=== PATIENT | male | born 1980 | race Caucasian/White ===

== ENCOUNTER 2022-04-23 22:24 | Emergency (ER) | payer MEDICARE, MEDICAID, SELFPAY ==
--- NOTE | ~2022-04-23 | XR_ITS ---
EXAMINATION: XR chest 2V DATE: 04/23/2022 22:57 INDICATION: Shortness of breath. TECHNIQUE: Frontal and lateral views of the chest were obtained. COMPARISON: None. FINDINGS: There is mild atelectasis in the lower lung zones. No pleural effusion or pneumothorax. The heart size is normal. IMPRESSION: 1. Mild atelectasis in the lower lung zones. Reviewed, dictated and finalized at location [facility]. [facility]
[2022-04-23 22:27] VITALS: BP 169/97; PULSE 86; RESP 18; TEMP 36.7; O2SAT 100
[2022-04-23 23:06] VITALS: O2SAT 100
--- NOTE | 2022-04-23 23:16 | ED.GENADULT ---
HPI - General Adult General Chief complaint: Recheck/Abnormal Lab/Rx Stated complaint: low 02 Time Seen by Provider: 04/23/22 22:37 History of Present Illness HPI narrative: 42-year-old male with intellectual disability at baseline presented to the emergency department for evaluation from a half-way for reported heavy breathing. Caregiver states that she noted he was breathing heavily and checked his pulse ox and she stated it was in the low 90s and did dip to 83%. Caregiver called EMS for transport to the emergency department. EMS stated that on arrival his pulse ox was in the high 90s. Upon arrival to emergency department patient's pulse ox is 100%. Patient denies any complaints at this time and is in no distress. Related Data Home Medications Medication Instructions Recorded Confirmed diphenhydramine HCl 25 mg capsule 25 mg PO Q6H PRN 01/28/20 10/20/21 (Allergy (diphenhydramine)) hydrocortisone 1 % topical cream 1 applic topical TID PRN 01/28/20 10/20/21 (Anti-Itch (hydrocortisone)) multivitamin,qu-xowh-[id number] 1 tablet PO DAILY 01/28/20 10/20/21 (Complete Multivitamin tablet) hkutzpbwwwzal-JA-dwcjfnjjvej 5 10 ml PO Q4H PRN 01/28/20 10/20/21 mg-10 mg-100 mg/5 mL oral liquid (Robafen CF (phenylephrine)) Allergies Allergy/AdvReac Type Severity Reaction Status Date / Time No Known Drug Allergies Allergy Mild Unknown Verified 04/23/22 22:30 Review of Systems Review of Systems: Patient denies any complaints at this time. Patient denies any chest pain or shortness of breath. Review of systems is limited due to patient's baseline mental status PMFSH Social History Social History (System 08/22/19 @ 13:19 by Elham Tiwari) Smoking status: Never smoker Exam Narrative: APPEARANCE: Well appearing, no pain, no distress, well-nourished. HEAD: normocephalic, atraumatic. EYES: PERRLA/EOMI, conjunctivae clear. NOSE: Normal no drainage THROAT: Pharynx clear, no exudate. NECK: Supple. No adenopathy, no masses. RESPIRATORY: Airway patent, respirations nonlabored. Clear to auscultation bilaterally, no rales, rhonchi, wheezing. CARDIOVASCULAR: Regular rate and rhythm without murmurs rubs or gallops. ABDOMINAL: Soft, nontender, nondistended, normal bowel sounds MUSCULOSKELETAL: Moves all extremities. Strength/ROM intact, No edema, No calf tenderness. NEURO: Alert. Cranial nerves II through XII intact. Grossly intact SKIN: Warm, dry. Normal Color Course Course Emergency Course: Patient has normal vital signs. Patient is neither tachypneic nor hypoxic. Patient is satting 100% on room air. Patient has no accessory muscle use and shows no difficulty breathing. Patient denies any chest pain or shortness of breath. Patient states he does feel fine at this time. Patient was tested for COVID at the care facility and was negative today. Patient is afebrile here. Patient had a negative chest x-ray. Differential diagnosis for patient's symptoms do include viral etiology such as COVID RSV or influenza, pneumonia, bronchospasm. With negative chest x-ray and normal physical exam, normal vital signs low concern for life-threatening illness. Caregiver was comfortable to plan for discharge back to the care facility. Patient was in no distress and was eager to get back onto bed. All question concerns were addressed and patient was stable at time of discharge from the emergency department. Vital Signs Vital signs: Vital Signs Temperature 98.1 F 04/23/22 22:27 Pulse Rate 86 04/23/22 22:27 Respiratory Rate 18 04/23/22 22:27 Blood Pressure 169/97 H 04/23/22 22:27 Pulse Oximetry 100 04/23/22 22:27 Oxygen Delivery Room Air 04/23/22 22:27 Temperature 98.1 F 04/23/22 22:27 Pulse Rate 75 04/24/22 00:20 Respiratory Rate 20 04/24/22 00:20 Blood Pressure 132/92 H 04/24/22 00:20 Pulse Oximetry 97 04/24/22 00:20 Oxygen Delivery Room Air 04/23/22 23:06 Medical Decision Ma
[2022-04-23 23:30] VITALS: BP 137/91; PULSE 84; RESP 23; O2SAT 97
[2022-04-24 00:20] VITALS: BP 132/92; PULSE 75; RESP 20; O2SAT 97
== END 2022-04-24 00:22 | disposition home or self-care (01) ==
PROVIDERS: Emergency Provider Emergency Medicine; PCP Internal Medicine
DX: R94.2 Abnormal results of pulmonary function studies (principal); F79 Unspecified intellectual disabilities
CPT/HCPCS: 71046; 99283